=== PATIENT | female | born 1985 | race Caucasian/White ===

== ENCOUNTER 2016-08-06 12:07 | Emergency (ER) | payer OTHER, MEDICAID ==
[~2016-08-06] VITALS: Ht 151.1 cm; Wt 69.1 kg
[~2016-08-06 12:07] MED LIST: AMPI500C49 PO; PREN-234 PO
[2016-08-06 12:12] VITALS: BP 129/74
[2016-08-06] MEDS: LIDOCAINE 1% 500 MG/50 ML VIAL INJ ONE (13:03)
[2016-08-06 14:03] VITALS: BP 117/67
== END 2016-08-06 14:04 | disposition home or self-care (01) ==
LOC: MED 12:07
DX: G44.209 Tension-type headache, unspecified, not intractable (principal); J45.909 Unspecified asthma, uncomplicated
CPT/HCPCS: 20552; 70450; 99284; J2001

== ENCOUNTER 2016-08-07 18:42 | Emergency (ER) | payer OTHER, MEDICAID ==
[~2016-08-07] VITALS: Ht 152.4 cm; Wt 68.0 kg
[2016-08-07 18:44] VITALS: BP 129/56
--- NOTE | 2016-08-07 19:09 | NUR ---
Patient to bed 8 at this time.
--- NOTE | 2016-08-07 19:22 | NUR ---
31 Y/O F W/C/O HEADACHES AND DIZZINESS X 1 MYH ON AND OFF. SHE DENIES FAINTING, OR SOB. NO S/S OF DISTRESS NOTED. ER MD MADE AWARE.
--- NOTE | 2016-08-07 19:35 | NUR ---
Dr. Nieves evaluating patient at bedside.
[2016-08-07] MEDS ORDERED: diphenhydrAMINE 50 MG/ML VIAL IM ONE (19:45)
[2016-08-07] MEDS ORDERED: PROCHLORPERAZINE 10 MG/2 ML VIAL IM ONE (19:45)
[2016-08-07 20:16] VITALS: BP 123/69
--- NOTE | 2016-08-07 20:16 | NUR ---
Patient discharged with v/s stable. Written and verbal after care instructions given and explained. Patient alert, oriented and verbalized understanding of instructions. Ambulatory with steady gait. All questions addressed prior to discharge. ID band removed. Patient advised to follow up with PMD OR RETURN TO ER IF CONDITION WORSENS. Rx of BENADRYL, AND COMPAZINE given. Patient educated on indication of medication including possible reaction and side effects. Opportunity to ask questions provided and answered.
== END 2016-08-07 20:16 | disposition home or self-care (01) ==
LOC: MED 18:42
DX: G44.209 Tension-type headache, unspecified, not intractable (principal); J45.909 Unspecified asthma, uncomplicated
CPT/HCPCS: 82948; 96372; 99284; J0780; J1200

== ENCOUNTER 2016-10-13 17:54 | Emergency (ER) | payer OTHER, MEDICAID ==
[~2016-10-13] VITALS: Ht 152.4 cm; Wt 68.0 kg
[2016-10-13 18:25] VITALS: BP 116/75
--- NOTE | 2016-10-13 19:21 | NUR ---
Patient ambulated to bed 08.
--- NOTE | 2016-10-13 19:23 | NUR ---
31 Y/O F W/C/O LUMPS AROUND RECTUM WITH SOME DRAINAGE COMING OUT. PT STATES SHE BELIEVES THESE LUMPS ARE HEMORROIDS AND ARE PAINFULL. PT DENIES ANY FEVER BUT STATES HAS HAD CHILLS AND BODY ACHES. NO S/S OF DISTRESS NOTED, ER MADE AWARE.
--- NOTE | 2016-10-13 19:35 | NUR ---
ZAHRA DAVILA AT BEDSIDE EVALUATING PT.
[2016-10-13 20:05] VITALS: BP 120/71
--- NOTE | 2016-10-13 20:05 | NUR ---
Patient discharged with v/s stable. Written and verbal after care instructions given and explained. Patient alert, oriented and verbalized understanding of instructions. Ambulatory with steady gait. All questions addressed prior to discharge. ID band removed. Patient advised to follow up with PMD, OR RETURN BACK TO ER IF CONDITION WORSENS. Rx of ANUSOL AND COLACE given. Patient educated on indication of medication including possible reaction and side effects. Opportunity to ask questions provided and answered.
== END 2016-10-13 20:05 | disposition home or self-care (01) ==
LOC: MED 17:54
DX: K64.4 Residual hemorrhoidal skin tags (principal); J45.909 Unspecified asthma, uncomplicated
CPT/HCPCS: 99283

== ENCOUNTER 2016-11-24 13:29 | Emergency (ER) | payer OTHER, MEDICAID ==
[~2016-11-24] VITALS: Ht 152.4 cm; Wt 64.0 kg
[2016-11-24 13:33] VITALS: BP 145/69
--- NOTE | 2016-11-24 15:33 | NUR ---
PATIENT LEFT WITHOUT BEING SEEN BY DR. MARSHALL. NO FURTHER CARE PROVIDED FOR PATIENT.
== END 2016-11-24 15:33 | disposition left against medical advice (07) ==
LOC: MED 13:29
DX: R00.2 Palpitations (principal); Z53.21 Procedure and treatment not carried out due to patient leaving prior to being seen by health care provider

== ENCOUNTER 2018-01-20 21:34 | Emergency (ER) | payer OTHER, MEDICAID ==
[~2018-01-20] VITALS: Ht 152.4 cm; Wt 65.8 kg
[2018-01-20 21:35] VITALS: BP 112/59
--- NOTE | 2018-01-20 21:39 | NUR ---
PT TAKEN TO BED 2
--- NOTE | 2018-01-20 21:40 | NUR ---
32 Y/O F PRESENTS TO THE ED W/C/O HEADACHE THAT RADIATES TO UPPER SHOULDERS X 3 WEEKS. PT DENIES V/D; +NAUSEA. SKIN IS INTACT, PINK/WARM/DRY; AAOX4, PERRL, WITH EVEN AND STEADY GAIT; LUNGS CLEAR BL, BREATHING UNLABORED; HR EVEN AND REGULAR, BL PERIPHERAL PULSES PRESENT; BS ACTIVE X4, NO TENDERNESS TO PALPATION, NO HEPATOSPLENOMEGALLY PALPATED, RESONANT TO PERCUSSION; PT DENIES ANY FEVER, CP, SOB, OR COUGH AT THIS TIME; PT STATES 9/10 PAIN AT THIS TIME; VSS; PATIENT POSITIONED FOR COMFORT; HOB ELEVATED; BEDRAILS UP X2; BED DOWN.
--- NOTE | 2018-01-20 22:05 | NUR ---
Dr. Bravo evaluating patient at bedside.
[2018-01-20] MEDS ORDERED: DIAZEPAM 5 MG TAB PO ONE (22:15)
[2018-01-20] MEDS ORDERED: KETOROLAC 30 MG/ML VIAL IM ONE (22:15)
[2018-01-20] MEDS ORDERED: KETOROLAC 30 MG/ML VIAL IVP ONE (22:15)
--- NOTE | 2018-01-20 23:00 | NUR ---
PT RESTING COMFORTABLY IN BED
[2018-01-20 23:36] VITALS: BP 120/72
--- NOTE | 2018-01-20 23:37 | NUR ---
Patient discharged with v/s stable. Written and verbal after care instructions given and explained. Patient alert, oriented and verbalized understanding of instructions. Ambulatory with steady gait. All questions addressed prior to discharge. ID band removed. Patient advised to follow up with PMD. Rx of NAPROSYN, VALIUM given. Patient educated on indication of medication including possible reaction and side effects. Opportunity to ask questions provided and answered.
== END 2018-01-20 23:37 | disposition home or self-care (01) ==
LOC: MED 21:34
DX: R51 Headache (principal); M54.2 Cervicalgia; J45.909 Unspecified asthma, uncomplicated
CPT/HCPCS: 81025; 96374; 99283; J1885; J7030

== ENCOUNTER 2018-04-09 10:15 | Emergency (ER) | payer MEDICAID, OTHER ==
[~2018-04-09] VITALS: Ht 160 cm; Wt 66.8 kg
[2018-04-09 10:20] VITALS: BP 125/96
--- NOTE | 2018-04-09 10:30 | NUR ---
32 yo f bib self w/ c/o asthma exacerbation x 2 days w/ inspiratory and expiratory wheezing. pt also reports having a dry cough and fever. pt took 1 dose of albuterol today, with no relief. rr even and tachypneic. clear speech with full sentences. pt reports of 6/10 mid back pain. rt paged. er md desir made aware of pt status. will continue to monitor.
--- NOTE | 2018-04-09 10:34 | NUR ---
influenza swab collected and sent to lab
[2018-04-09] MEDS ORDERED: ALBUTEROL SULFATE/IPRATROPIU 3 ML SOL IH ONE (10:35)
--- NOTE | 2018-04-09 11:10 | NUR ---
resp status improved; decreased wheezing to bl lung sounds.
[2018-04-09 11:28] VITALS: BP 119/70
--- NOTE | 2018-04-09 11:28 | NUR ---
Patient discharged with v/s stable. Written and verbal after care instructions given and explained. Patient alert, oriented and verbalized understanding of instructions. Ambulatory with steady gait. All questions addressed prior to discharge. ID band removed. Patient advised to follow up with PMD. Rx of Tamiflu 75mg and Prednisone 50mg given. Patient educated on indication of medication including possible reaction and side effects. Opportunity to ask questions provided and answered.
== END 2018-04-09 11:28 | disposition home or self-care (01) ==
LOC: EDBD → MED 10:15
DX: J10.1 Influenza due to other identified influenza virus with other respiratory manifestations (principal); J45.909 Unspecified asthma, uncomplicated
CPT/HCPCS: 36415; 87804; 94640; 99283; J7620

== ENCOUNTER 2018-09-27 18:43 | Emergency (ER) | payer BC, MEDICAID ==
[~2018-09-27] VITALS: Ht 154.9 cm; Wt 65.3 kg
[2018-09-27 19:10] VITALS: BP 119/76
[2018-09-27] MEDS ORDERED: diphenhydrAMINE 50 MG/ML VIAL IVP ONE (19:35)
[2018-09-27] MEDS ORDERED: METOCLOPRAMIDE 10 MG/2 ML INJ VIAL IVP ONE (19:35)
[2018-09-27] MEDS ORDERED: NACL 0.9% 1,000 ML IV ONE (19:35)
[2018-09-27 20:05] LABS: BASOPHILS # (AUTO) 0.1 K/uL (0.00-0.22); BASOPHILS % (AUTO) 0.9 % (0.0-2.0); EOSINOPHILS # (AUTO) 0.1 K/uL (0-0.4); EOSINOPHILS % (AUTO) 1.5 % (0.0-4.0); HEMATOCRIT 37.1 % (36-48); HEMOGLOBIN 12.5 g/dL (12.0-16.0); LYMPHOCYTES # (AUTO) 2.2 K/uL (2.5-16.5); LYMPHOCYTES % (AUTO) 28.5 % (20.5-51.1); MEAN CORPUSCULAR HEMOGLOBIN 32 pg (27-31); MEAN CORPUSCULAR HGB CONC 34 g/dL (33-37); MEAN CORPUSCULAR VOLUME 93.9 fL (80-94); MONOCYTES # (AUTO) 0.5 K/uL (0.8-1.0); MONOCYTES % (AUTO) 6.7 % (1.7-9.3); NEUTROPHILS # (AUTO) 4.8 K/uL (1.8-7.7); NEUTROPHILS % (AUTO) 62.4 % (42.2-75.2); PLATELET COUNT (AUTO) 270 K/uL (140-450); RED BLOOD CELL COUNT(AUTO) 3.95 MIL/uL (4.20-5.40); RED CELL DISTRIBUTION WIDTH 12.8 % (11.6-13.7); WHITE BLOOD COUNT (AUTO) 7.7 K/uL (4.8-10.8)
[2018-09-27 20:20] LABS: ANION GAP 11.2 (8-16); CARBON DIOXIDE 26.3 mmol/L (21-32); CREATININE 0.7 mg/dL (0.6-1.3); POTASSIUM 3.5 mmol/L (3.5-5.1)
[2018-09-27 23:34] VITALS: BP 101/60
== END 2018-09-27 23:32 | disposition home or self-care (01) ==
LOC: MED 18:43
DX: R51 Headache (principal); J45.909 Unspecified asthma, uncomplicated
CPT/HCPCS: 36415; 70450; 80048; 81002; 81025; 85025; 96374; 96375; 99284; J1200; J2765; J7030

== ENCOUNTER 2019-02-21 22:49 | Emergency (ER) | payer BC, MEDICAID ==
[~2019-02-21] VITALS: Ht 152.4 cm; Wt 67.1 kg
[2019-02-21 22:54] VITALS: BP 130/83
--- NOTE | 2019-02-21 22:59 | NUR ---
PT AMBULATED TO BED #12
--- NOTE | 2019-02-21 23:00 | NUR ---
33 Y/O FEMALE BIB C/O OF ABDOMINAL PAIN WITH HEMATURIA AND DYSURIA X1 DAY. PAIN RANGES FROM A 5-6/10 PAIN. DENIES N/V/D. ABDOMEN IS SOFT AND ROUND; ACTIVE BOWEL SOUNDS. NO TENDERNESS UPON PALPATION. PATIENT STATES THAT SHE HAS BLOOD IN HER URINE. PMH:ARTHRITIS; GASTRITIS; DM; HTN SURGICAL HX: NKA RX:NKDA Addendum: 02/22/19 at 0409 by ZULEMA ERMTrupti MADE AWARE. SIDE RAILSX1.
--- NOTE | 2019-02-21 23:12 | NUR ---
Dr. Nieves examining patient.
[2019-02-21] MEDS ORDERED: PHENAZOPYRIDINE 100 MG TAB PO ONE (23:20)
[2019-02-21] MEDS ORDERED: KETOROLAC 60 MG/2 ML VIAL IM ONE (23:20)
[2019-02-21 23:23] LABS: BILIRUBIN,URINE NEGATIVE (NEGATIVE); BLOOD, URINE 3+ (NEGATIVE); LEUKOCYTE ESTERASE ,URINE 2+ (NEGATIVE); NITRITE, URINE NEGATIVE (NEGATIVE); UGLUCOSE NEGATIVE (NEGATIVE)
[2019-02-21] MEDS ORDERED: PHENAZOPYRIDINE 100 MG TAB ONE (23:36)
[2019-02-21 23:37] LABS: APPEARANCE,URINE SLIGHTLY CLOUDY (CLEAR); COLOR,URINE RED (YELLOW)
--- NOTE | 2019-02-21 23:37 | NUR ---
ACCIDENTALLY ONLY PULLED 100MG OF PYRDIUM. WENT TO OMNICELL AND OVERRIDE TO GRAB THE OTHER 100MG.
[2019-02-21 23:38] LABS: WBC,URINE 16-25 (MOD) /HPF (0-5)
[2019-02-21] MEDS ORDERED: SULFAMETH/TRIMETH DS 800/160MG 1 TAB PO ONE (23:50)
[2019-02-22] VITALS: BP 130/83
--- NOTE | 2019-02-22 | NUR ---
Patient discharged with v/s stable. Written and verbal after care instructions given and explained. Patient alert, oriented and verbalized understanding of instructions. Ambulatory with steady gait. All questions addressed prior to discharge. ID band removed. Patient advised to follow up with PMD. Rx of PYRIDIUM; BACTRIM; MOTRIN given. Patient educated on indication of medication including possible reaction and side effects. Opportunity to ask questions provided and answered.
--- NOTE | 2019-02-24 13:26 | NUR ---
URINE CULTURE RESULTS RECEIVED, PT TREATED APPROPRIATELY PER THE C&S. Addendum: 02/24/19 at 1328 by [facility] CULTURE RESULTS SHOWED TO DR. SHIELDS, NO NEW TREATMENT NEEDED. PT RECEIVING APPROPRIATE TREATMENT.
== END 2019-02-22 | disposition home or self-care (01) ==
LOC: MED 22:49
DX: N39.0 Urinary tract infection, site not specified (principal); J45.909 Unspecified asthma, uncomplicated; I10 Essential (primary) hypertension
CPT/HCPCS: 81001; 87086; 87186; 96372; 99283; J1885

== ENCOUNTER 2020-07-02 17:53 | Inpatient (IN) | payer BC, MEDICAID, SELFPAY ==
[~2020-07-02] VITALS: Ht 152.4 cm; Wt 67.1 kg
[2020-07-02 17:58] VITALS: BP 119/78
--- NOTE | 2020-07-02 18:00 | NUR ---
Patient ambulated to bed 01 with steady/even gait.
--- NOTE | 2020-07-02 18:40 | NUR ---
35 y/o F coming in from home with c/c LLQ abdominal pain x 5 weeks. Patient presents A&Ox4, ambulatory, Tajik speaking and states abdominal pain x 5 weeks that worsen. Patient reports bloating, headache, nausea without vomiting/diarrhea. Patient also reports suprapubic pain; patient noted with red stretch begum to lower pelvic/suprapubic region. Patient states this has been going on for 5 weeks as well. Patient reports Tylenol prior to arrival without relief. Patient denies any urinary symptoms, chest pain, back pain, dizziness, cough, fever/chills. Patient states last BM this morning; normal/semi-formed. Pt placed into gown, urine sample obtained. marketing director in place; patient tachycardic at HR 115. Bowel sounds normoactive x 4 quadrants. Bed locked in lowest position, side rails x 1, call light in reach. PMH/Sx/Meds: Denies NKA
--- NOTE | 2020-07-02 19:04 | NUR ---
Blood sample collected and remains at ER bedside.
[2020-07-02] MEDS ORDERED: NACL 0.9% 1,000 ML IV SCH (19:15)
--- NOTE | 2020-07-02 19:15 | NUR ---
Blood and urine sample collected, walked to lab and handed to CPT. Thea
--- NOTE | 2020-07-02 19:19 | NUR ---
Report and transfer of care given to YARELY Singleton.
--- NOTE | 2020-07-02 19:20 | NUR ---
RECEIVED REPORT FROM DAY SHIFT NURSE JORGE L. PT IN BED RESTING WITH MONITORS IN PLACE. PT STILL COMPLAINING OF ABDOMINAL PAIN 10/10 AND MILD HEADACHE. PT TACHYCATDIC HR 112, OTHER VS STABLE. PT WITH NO REQUESTS MADE AT THIS TIME. SAFETY MEASURES IN PLACE. WILL CONTINUE TO MONITOR.
[2020-07-02 19:28] LABS: BASOPHILS % (AUTO) 0.3 % (0.0-2.0); EOSINOPHILS # (AUTO) 0.1 K/uL (0-0.4); EOSINOPHILS % (AUTO) 0.9 % (0.0-4.0); HEMATOCRIT 36.4 % (36-48); HEMOGLOBIN 12.2 g/dL (12.0-16.0); LYMPHOCYTES # (AUTO) 1.4 K/uL (2.5-16.5); LYMPHOCYTES % (AUTO) 9.4 % (20.5-51.1); MEAN CORPUSCULAR HEMOGLOBIN 32 pg (27-31); MEAN CORPUSCULAR HGB CONC 34 g/dL (33-37); MEAN CORPUSCULAR VOLUME 94.4 fL (80-94); MONOCYTES # (AUTO) 1.4 K/uL (0.8-1.0); MONOCYTES % (AUTO) 9.8 % (1.7-9.3); NEUTROPHILS # (AUTO) 11.5 K/uL (1.8-7.7); NEUTROPHILS % (AUTO) 79.6 % (42.2-75.2); PLATELET COUNT (AUTO) 486 K/uL (140-450); RED BLOOD CELL COUNT(AUTO) 3.85 MIL/uL (4.20-5.40); RED CELL DISTRIBUTION WIDTH 12.5 % (11.6-13.7); WHITE BLOOD COUNT (AUTO) 14.5 K/uL (4.8-10.8)
[2020-07-02 19:28] LABS: APPEARANCE,URINE CLEAR (CLEAR); BILIRUBIN,URINE NEGATIVE (NEGATIVE); BLOOD, URINE 1+ (NEGATIVE); COLOR,URINE YELLOW (YELLOW); LEUKOCYTE ESTERASE ,URINE NEGATIVE (NEGATIVE); NITRITE, URINE NEGATIVE (NEGATIVE); PH,URINE 6.5 (5.0-9.0); UGLUCOSE NEGATIVE (NEGATIVE)
[2020-07-02 19:47] LABS: RBC,URINE 11-20 (MOD) /HPF (0-5); WBC,URINE 0-5 /HPF (0-5)
[2020-07-02 20:28] LABS: ALBUMIN 3.7 g/dL (3.4-5.0); ANION GAP 14.3 (8-16); CARBON DIOXIDE 26.5 mmol/L (21-32); CREATININE 0.7 mg/dL (0.6-1.3); POTASSIUM 3.8 mmol/L (3.5-5.1); TOTAL BILIRUBIN 0.3 mg/dL (0.0-1.0)
--- NOTE | 2020-07-02 21:00 | NUR ---
PT OFF TO CT
--- NOTE | 2020-07-02 21:16 | NUR ---
PT BACK FROM CT
[2020-07-02] MEDS ORDERED: VANCOMYCIN 1,000 MG in DEXTROSE 5% 250 ML IV ONE (21:55)
[2020-07-02] MEDS ORDERED: MORPHINE SULFATE 4 MG/ML SYR IVP ONE (22:00)
[2020-07-02] MEDS ORDERED: cefTRIAXone 1,000 MG VIAL ONE (22:17)
[2020-07-02] MEDS ORDERED: VANCOMYCIN PER PHARMACY MC PRN (22:40)
[2020-07-02] MEDS ORDERED: DOCUSATE SODIUM 100 MG GELCAP PO PRN (22:40)
[2020-07-02] MEDS ORDERED: HYDROcodone/APAP 7.5/325 MG 1 TAB PO PRN (22:40)
[2020-07-02] MEDS ORDERED: POTASSIUM CHLORIDE 10 MEQ TABER PO PRN (22:40)
[2020-07-02] MEDS ORDERED: ONDANSETRON 4 MG/2 ML VIAL IM/IVP PRN (22:40)
[2020-07-02] MEDS ORDERED: ACETAMINOPHEN 325 MG TAB PO PRN (22:40)
[2020-07-02] MEDS ORDERED: VANCOMYCIN 1,000 MG VIAL ONE (23:17)
[2020-07-02 23:22] LABS: PROTHROMBIN TIME 9.2 secs (10.8-13.4)
[2020-07-02 23:23] LABS: FREE T4 (FREE THYROXINE) 1.05 ng/dL (0.76-1.46); MAGNESIUM 2.4 mg/dL (1.8-2.4); PHOSPHORUS 3.5 mg/dL (2.5-4.9); THYROID STIMULATING HORMONE 0.78 uIU/mL (0.34-3.74)
[2020-07-02] MEDS: NACL 0.9% 1,000 ML IV SCH (23:23)
--- NOTE | 2020-07-02 23:30 | NUR ---
PT ASLEEP. VISIBLE CHEST RISE AND FALL NOTED. PT NOT IN DISTRESS. SAFETY MEASURES IN PLACE. VSS, WILL CONTNUE TO MONITOR.
--- NOTE | 2020-07-03 01:15 | NUR ---
RECEIVED TELEPHONE REPORT FROM ER NURSE ZACHARY. PT AOX4, IV SITE RAC 20G PATENT INTACT INFUSING NS @60 ML/HR. SKIN INTACT, REDNESS TO S/P SURGICAL SITE. CC: LLQ ABD PAIN, NAUSEA. DX: ABDOMINAL WALL ABSCESS AND CELLULITIS S/P SURGERY. AMBULATORY, JOSE NEGATIVE. WILL GET THE ROOM READY
--- NOTE | 2020-07-03 01:22 | NUR ---
Patient will be admitted to care of DR BRADY. Admited to [facility]. Will go to room 105B. Belongings list completed. Report to LAURA PRITCHETT.
[2020-07-03 01:30] VITALS: BP 108/63
--- NOTE | 2020-07-03 01:30 | NUR ---
PATIENT ARRIVED TO UNIT. ON MEDSURG, PT AOX4 ON ROOM AIR. NO S/S RESPIRATORY DISTRESS. DENIES NAUSEA. HAS 5/10 ABD PAIN, SKIN WARM DRY INTACT, REDNESS TO LEFT SIDE SURGICAL SITE. LUNGS CLEAR, BOWEL SOUNDS ACTIVE. LBM: 07/02/20. IV SITE RAC 20G PATENT INTACT INFUSING NS @60ML/HR. ORIENTED TO ROOM AND HOSPITAL. NOTIFIED NPO STATUS TO PATIENT AND MANAGER PRINTING, SIGN POSTED AT DOOR. VS: TEMP 99.3 BP 108/63 HR 98 O2 SAT 98%. SAFETY MEASURES IN PLACE. CALL LIGHT WITHIN REACH. WILL CONTINUE TO MONITOR. MRSA SWAB OBTAINED
--- NOTE | 2020-07-03 01:45 | NUR ---
PATIENT STATES TOLERABLE PAIN AT THIS TIME. NO S/S ACUTE DISTRESS NOTED. BED IN LOW POSITION. CALL LIGHT WITHIN REACH. WILL CONTINUE TO MONITOR
--- NOTE | 2020-07-03 03:19 | NUR ---
PATIENT ASLEEP IN BED. RESPIRATIONS EVEN UNLABORED. NO DISTRESS NOTED. CALL LIGHT WITHIN REACH. WILL CONTINUE TO MONITOR
[2020-07-03 04:00] VITALS: BP 99/69
--- NOTE | 2020-07-03 05:11 | NUR ---
PATIENT ASLEEP IN BED. RESPIRATIONS EVEN UNLABORED. NO DISTRESS NOTED. CALL LIGHT WITHIN REACH. WILL CONTINUE TO MONITOR
[2020-07-03 06:39] LABS: CREATININE 0.6 mg/dL (0.6-1.3)
[2020-07-03 06:47] LABS: BASOPHILS # (AUTO) 0.1 K/uL (0.00-0.22); BASOPHILS % (AUTO) 0.4 % (0.0-2.0); EOSINOPHILS # (AUTO) 0.1 K/uL (0-0.4); EOSINOPHILS % (AUTO) 0.8 % (0.0-4.0); HEMATOCRIT 33.9 % (36-48); HEMOGLOBIN 11.5 g/dL (12.0-16.0); LYMPHOCYTES # (AUTO) 1.5 K/uL (2.5-16.5); LYMPHOCYTES % (AUTO) 10.3 % (20.5-51.1); MEAN CORPUSCULAR HEMOGLOBIN 32 pg (27-31); MEAN CORPUSCULAR HGB CONC 34 g/dL (33-37); MEAN CORPUSCULAR VOLUME 92.9 fL (80-94); MONOCYTES # (AUTO) 1.8 K/uL (0.8-1.0); MONOCYTES % (AUTO) 12.3 % (1.7-9.3); NEUTROPHILS # (AUTO) 11.4 K/uL (1.8-7.7); NEUTROPHILS % (AUTO) 76.2 % (42.2-75.2); PLATELET COUNT (AUTO) 412 K/uL (140-450); RED BLOOD CELL COUNT(AUTO) 3.65 MIL/uL (4.20-5.40); RED CELL DISTRIBUTION WIDTH 12.7 % (11.6-13.7); WHITE BLOOD COUNT (AUTO) 14.9 K/uL (4.8-10.8)
[2020-07-03] MEDS ORDERED: MORPHINE SULFATE 4 MG/ML SYR IVP PRN (07:00)
[2020-07-03] MEDS ORDERED: BUPIVACAINE-MPF/EPI 0.5% 30 ML VIAL INJ ONE (07:17)
[2020-07-03] MEDS ORDERED: LIDOCAINE 1% 500 MG/50 ML VIAL ONE (07:18)
[2020-07-03] MEDS ORDERED: HYDROGEN PEROXIDE 3% 240 ML BTL TP ONE (07:18)
--- NOTE | 2020-07-03 07:31 | NUR ---
ENDORSED PATIENT TO DAY RN FOR CONTINUITY OF CARE. PATIENT IS IN STABLE CONDITION
--- NOTE | 2020-07-03 07:33 | NUR ---
RECEIVED REPORT FROM NIGHT NURSE PT IS AAOX4 ON ROOM AIR , AMBULATORY, NPO AFTER MIDNIGHT , LAST BOWEL MOVEMENT 07/02/20 AND FOR I&D TODAY CONSENT NOT SIGNED BY PATIENT AND NOT SEEN BY THE DOCTOR.SKIN INTACT. SAFETY MEASURES IN PLACE AND CALL LIGHT WITHIN REACH. WILL CONTINUE TO MONITOR.
[2020-07-03 08:00] VITALS: BP 101/45
--- NOTE | 2020-07-03 08:00 | NUR ---
PATIENT OUT IN HER ROOM FOR SURGERY. PT IS STABLE.
--- NOTE | 2020-07-03 08:31 | NUR ---
PATIENT HAS BEEN SCREENED AND CATEGORIZED LOW NUTRITION RISK. PATIENT WILL BE SEEN WITHIN 7 DAYS OF ADMISSION. 07/09/[address]
[2020-07-03] MEDS ORDERED: VANCOMYCIN HCL 1,000 MG in DEXTROSE 5% 250 ML IV SCH (09:00)
[2020-07-03] MEDS ORDERED: MEPERIDINE 50 MG/ML SYR ONE (09:05)
[2020-07-03] MEDS ORDERED: KETOROLAC 30 MG/ML VIAL ONE (09:05)
[2020-07-03] MEDS ORDERED: DEXAMETHASONE 4 MG/ML VIAL ONE (09:05)
[2020-07-03] MEDS ORDERED: MIDAZOLAM 2 MG/2 ML VIAL ONE (09:05)
[2020-07-03] MEDS ORDERED: PROPOFOL 200 MG/20 ML VIAL IV ONE (09:05)
[2020-07-03] MEDS ORDERED: fentaNYL citrate 0.05 MG/ML VIAL ONE (09:05)
[2020-07-03] MEDS ORDERED: ONDANSETRON 4 MG/2 ML VIAL ONE (09:05)
[2020-07-03] MEDS ORDERED: SEVOFLURANE 250 ML BTL INH ONE (09:05)
--- NOTE | 2020-07-03 10:10 | NUR ---
placed incentive spirometer in patients room per order. pt currently out for procedure at this time. incentive spirometer left at bedside table for pt use.
--- NOTE | 2020-07-03 10:40 | NUR ---
PATIENT IS BACK IN HER ROOM S/P INCISION AND DRAINAGE OF ABSCESS OF ABDOMINAL WALL WITH CRISTELA DRAIN. VITAL SIGNS TAKEN BP 101/45 MD 80 RR 20 TEMP 97.6 OXYGEN SATURATION 99%. MONITORED AND CHECK VITAL SIGNS PT IS STABLE AND NO COMPLAINS OF PAIN.
--- NOTE | 2020-07-03 10:51 | NUR ---
DC PLANNIN YRS OLD FEMALE PATIENT WAS ADMITTED FROM HOME WITH A DX OF ABDOMINAL WALL ABSCESS AND CELLULITIS S/P SURGERY. PT HAS A HX OF TUMBECKY CRANE DONE 5 WEEKS AGO AT SURGERY OFFICE IN [place]. CT ABD SHOWED SUSPICIOUS FOR ABDOMINAL ABSCESS ,CXR SHOWED NO ACUTE PROCESS. RAPID COVID TEST NEGATIVE. STARTED IVF, IV ABX VANCOMYCIN AND ROCEPHIN. CONSULTED WITH ID, AND GENERAL SURGEON. DC PLAN TO GO HOME WITH HOME HEALTH FOR WOUND CARE. CM TO FOLLOW Addendum: 07/03/20 at 1109 by Analilia Bashir RN DC PLANNING: CALLED PT INSURANCE [facility] WITH [facility] LUCA ASH AT RISK, SPOKE WITH WILIAN FRANK STATED RECEIVED THE CLINICAL AND PROCESSING THE AUTH AND WILL CALL BACK. CM TO FOLLOW Addendum: 07/03/20 at 1341 by Analilia Bashir RN DC PLANNING: CALLED DR MUKESH FUNK'S OFFICE [phone] [place] OFF[facility] SPOKE WITH INDIO CLINICAL LAB SPECIALIST, NOTIFIED HER PT IS ADMITTED WITH US FOR ABDOMINAL WALL CELLULITIS. PER INDIO WILL NOTIFY DR FUNK AND ALSO I INFORMED HER OUR INFECTION CONTROL WILL CONTACT THEM. NOTIFY INFECTION CONTROL HECTOR FUNK'S OFFICE ADDRESS AND NUMBER. CM TO FOLLOW Addendum: 07/04/20 at 0930 by Molly Neal CM DC BRUSH POLISHER: FAXED ORDER FOR WOUND CARE AND HOME HEALTH TO [facility]. WILL FOLLOW UP WITH ZAC CEDENO Addendum: 07/04/20 at 1209 by Analilia Bashir RN DC PLANNING: CALLED DR SHINE TO DISCUSSED THE WOUND VAC ORDER TO PUT IT BY HOME HEALTH NURSE, LEWIS RYAN LEFT A MESSAGE. DC PLAN AWAITING FOR THE WOUND CULTURE RESULTS. CM TO FOLLOW Addendum: 07/04/20 at 1240 by Molly Neal CM DC BRUSH POLISHER: FAXED ORDER FOR WOUND VAC TO [facility] [phone]. THEY ARE STILL PROCESSING THE ORDER. Addendum: 07/04/20 at 1343 by Analilia Bashir RN DC PLANNING: RECEIVED A CALL FROM DR SHINE DISCUSSED THE WOUND VAC ORDER PER MD KENNEY TO PUT THE WOUND VAC WITH HOME HEALTH NURSE. PER WILIAN FRANK AT [facility] WILL ARRANGE HOME HEALTH AND WILL ORDER WOUND VAC. DC PLAN AWAITING FOR THE FINAL RESULT OF WOUND CULTURE RESULT. CM TO FOLLOW Addendum: 07/05/20 at 1035 by Molly Neal CM PEGGY MONTALVO: FOLLOWED UP WITH WILIAN AT [facility] HE ARRANGED HOME HEALTH WITH [facility]. Addendum: 07/05/20 at 1042 by Analilia Bashir RN DC PLANNING: RECEIVED A MESSAGE FROM [facility] WEN [phone] REGARDING THE WOUND VAC. CALLED [facility] A MESSAGE. ZAC TO FOLLOW Addendum: 07/05/20 at 1255 by Molly Neal CM PEGGY MONTALVO: CALLED [facility] TO FOLLOW UP NO ANSWER, LEFT A VOICEMAIL. [phone] THEY STATED THAT THEY ARE MISSING SOME THINGS AND CHARLENE WILL BE CALLING SHORTLY Addendum: 07/06/20 at 1541 by Molly Neal CM PEGGY MONTALVO: CONTACTED [facility] [phone] TO NOTIFY THEM THAT PATIENT WILL BE DISCHARGED TODAY. THEY WILL BE OUT THURSDAY TO SEE PATIENT.
--- NOTE | 2020-07-03 11:20 | NUR ---
MEDICATION DUE GIVEN VANCOMYCIN 1000 MG IV INFUSING WELL.
[2020-07-03] MEDS: VANCOMYCIN 1,000 MG in DEXTROSE 5% 250 ML IV SCH ×2 (11:25→23:12)
--- NOTE | 2020-07-03 11:59 | NUR ---
SOCIAL WORK NOTE: Patient's Orientation Unable To Assess Information Provided By DANNY ENCISO - Comments SW WAS UNABLE TO MEET PATIENT AT BEDSIDE. SW COMPLETED ASSESSMENT WITH Supervisor Pipe Manufacture, Realtionship and Phone Number DANNY ENCISO [phone] Healthcare Power of Cylinder Die Machine Helper No Does Patient Have a POLST No Identifying Problems No Social Work Triggers Is A Social Work Consult Needed No Mandate Report Filed No Explanation Of Identifying Problems PATIENT IS A 35-YEAR-OLD FEMALE ADMITTED FOR ABD WALL ABSCESS AND CELLULITIS. PATIENT HAS NO REPORTED PMHX. Admitted From Home Pre-Admission Level Of Functioning Status Independent/Ambulatory Prior Resources/Services Used In Last 12 Months No Prior Resources Used Prior DME No Prior DME Used Dialysis Comments N/A Living Situation Apartment Lives With Family Patient Had Caregiver No Home Support No Caregiver Issues Financial Issues No Known Financial Issue Referral To The Financial Counselor Needed No Factors/Needs No D/C Needs Identified Pt/Rep Participated In Discharge Plan Yes Patient/Family Agress With Discharge Plan Yes Discharge Plan Comments TENTATIVE DISCHARGE PLAN IS FOR PATIENT TO RETURN HOME. DC Plan Status Initiated
--- NOTE | 2020-07-03 15:00 | NUR ---
MADE ROUNDS PT IS RESTING DENIES PAIN AND NO DISTRESS NOTED.
[2020-07-03] MEDS: NACL 0.9% 1,000 ML IV SCH (15:20)
[2020-07-03 18:00] VITALS: BP 115/51
--- NOTE | 2020-07-03 18:44 | NUR ---
MADE ROUNDS CHECK PT DRESSING DRY AND INTACT AND NO OUTPUT FOR CRISTELA DRAIN.
--- NOTE | 2020-07-03 19:17 | NUR ---
ENDORSED TO NIGHT NURSE FOR CONTINUITY OF CARE. PT IS STABLE.
--- NOTE | 2020-07-03 19:18 | NUR ---
RECEIVED BEDSIDE REPORT FROM DAY YARELY GONZALEZ. PT AOX4 ON ROOM AIR. NO S/S RESPIRATORY DISTRESS. NO C/O PAIN AT THIS TIME. IV SITE RAC 20G PATENT INTACT, INFUSING NS @60ML/HR. S/P I&D DRESSING DRY INTACT. CRISTELA DRAIN TO LEFT SIDE NO DRAINAGE. SAFETY MEASURES IN PLACE. CALL LIGHT WITHIN REACH. WILL CONTINUE TO MONITOR
[2020-07-03 20:00] VITALS: BP 97/56
--- NOTE | 2020-07-03 21:29 | NUR ---
PATIENT AWAKE TALKING ON CELLPHONE. DENIES PAIN, DENIES DISCOMFORT. NO S/S ACUTE DISTRESS NOTED. BED IN LOW POSITION. CALL LIGHT WITHIN REACH. WILL CONTINUE TO MONITOR
--- NOTE | 2020-07-03 22:02 | NUR ---
ADMINISTERED SCHEDULED MEDICATION. EDUCATION PROVIDED. NO DISTRESS NOTED. CALL LIGHT WITHIN REACH. WILL CONTINUE TO MONITOR
--- NOTE | 2020-07-03 23:05 | NUR ---
IV SITE RAC 20G INFILTRATED, REMOVED CANNULA INTACT. INSERTED NEW IV TO R HAND 24G PATENT INTACT. TOLERATED WELL. NO DISTRESS NOTED. CALL LIGHT WITHIN REACH. WILL CONTINUE TO MONITOR
--- NOTE | 2020-07-03 23:15 | NUR ---
ADMINISTERED SCHEDULED MEDICATION. EDUCATION PROVIDED. NO DISTRESS NOTED. CALL LIGHT WITHIN REACH. WILL CONTINUE TO MONITOR
--- NOTE | 2020-07-04 00:34 | NUR ---
PATIENT ASLEEP IN BED. RESPIRATIONS EVEN UNLABORED. NO DISTRESS NOTED. CALL LIGHT WITHIN REACH. WILL CONTINUE TO MONITOR
[2020-07-04] MEDS: NACL 0.9% 1,000 ML IV SCH ×2 (01:31→21:39)
--- NOTE | 2020-07-04 01:36 | NUR ---
IVF HUNG ORDERED. PATIENT NO S/S OF DISTRESS NOTED. CALL LIGHT WITHIN REACH. WILL CONTINUE TO MONITOR
--- NOTE | 2020-07-04 03:02 | NUR ---
PATIENT ASLEEP IN BED. RESPIRATIONS EVEN UNLABORED. NO DISTRESS NOTED. CALL LIGHT WITHIN REACH. WILL CONTINUE TO MONITOR
[2020-07-04 04:00] VITALS: BP 91/55
--- NOTE | 2020-07-04 04:40 | NUR ---
CRISTELA DRAIN OUTPUT LESS THAN 2.5 ML SEROSANGUINEOUS. DRESSING DRY INTACT. DENIES DISCOMFORT, DENIES PAIN. CALL LIGHT WITHIN REACH. WILL CONTINUE TO MONITOR
[2020-07-04 05:39] LABS: BASOPHILS % (AUTO) 0.1 % (0.0-2.0); EOSINOPHILS % (AUTO) 0.2 % (0.0-4.0); HEMATOCRIT 30.7 % (36-48); HEMOGLOBIN 10.4 g/dL (12.0-16.0); LYMPHOCYTES # (AUTO) 1.4 K/uL (2.5-16.5); LYMPHOCYTES % (AUTO) 9.2 % (20.5-51.1); MEAN CORPUSCULAR HEMOGLOBIN 32 pg (27-31); MEAN CORPUSCULAR HGB CONC 34 g/dL (33-37); MEAN CORPUSCULAR VOLUME 94.2 fL (80-94); MONOCYTES # (AUTO) 1.2 K/uL (0.8-1.0); MONOCYTES % (AUTO) 8.1 % (1.7-9.3); NEUTROPHILS # (AUTO) 12.5 K/uL (1.8-7.7); NEUTROPHILS % (AUTO) 82.4 % (42.2-75.2); PLATELET COUNT (AUTO) 455 K/uL (140-450); RED BLOOD CELL COUNT(AUTO) 3.25 MIL/uL (4.20-5.40); RED CELL DISTRIBUTION WIDTH 12.6 % (11.6-13.7); WHITE BLOOD COUNT (AUTO) 15.1 K/uL (4.8-10.8)
[2020-07-04 06:07] LABS: ANION GAP 12.2 (8-16); CARBON DIOXIDE 23.8 mmol/L (21-32); CREATININE 0.5 mg/dL (0.6-1.3)
--- NOTE | 2020-07-04 07:25 | NUR ---
ENDORSED PATIENT TO DAY RN FOR CONTINUITY OF CARE. PATIENT IS IN STABLE CONDITION
[2020-07-04 08:00] VITALS: BP 103/62
[2020-07-04 08:08] LABS: T4 (THYROXINE) 8.1 ug/dL (4.5-12.0)
[2020-07-04] MEDS: GAUZE TP SCH (08:41)
--- NOTE | 2020-07-04 08:41 | NUR ---
CRISTELA DRAIN AT LEFT LOWER ABD REMOVED BY DR. SHINE AT 08:25. WOUND CARE PERFORMED INSTRUCTED BY DR. SHINE. CLEANSE WOUND AT MID ABD WITH NORMAL SALINE, PACKED WITH WET KERLIX ROLLS. COVERED WITH ABD PAD. CRISTELA DRAIN OPENING CLEANSE WITH NS. COVERED WITH GAUZE. SECURED WITH TAPE, PATIENT TOLERATED THE PROCEDURE WELL, DENIED PAIN. PER DR. SHINE, PATIENT NEED WOUND VAC TOMORROW AND PATIENT MAY DC HOME. WOUND CARE NURSE DOE INFORMED. WILL INFORM TRUCK TECHNICIAN LATER.
--- NOTE | 2020-07-04 09:00 | NUR ---
PER PRIMARY RN SURGEON REMOVED CRISTELA DRAIN AND REQUEST WOUND VAC. PT IS A POSTOP DAY #42 FOLLOWING ABDOMINOPLASTY IN [place]. AND POSTOPERATIVE DAY #1 FOLLOWING INCISION AND DRAINAGE OF THE ABSCESS OF THE ABDOMINAL WALL IN THE LEFT LOWER QUADRANT. ABOVE INFORMATION OBTAINED FROM PT. H&P. LLQ ABDOMINAL WALL SURGICAL WOUND [id number] WOUND BED 100% GRANULATING TISSUE, UNDERMINING TO 12 OCLOCK DIRECTION 3CM, SMALL AMOUNT SEROSANGUINEOUS DRAINAGE, NO ODOR, WOUND EDGE FLAT, MILLY -WOUND SKIN TOWARD 3 OCLOCK DIRECTION S/P CRISTELA DRAINS SURGICAL SITE 0.5X0.5X1CM, CLEAN MOIST NO ODOR. POC DISCUSSED WITH PRIMARY RN AND OPERATOR BEARER SYSTEMS. OPERATOR BEARER SYSTEMS TO ORDER HOME UNIT WOUND VAC TO DELIVER TO HOSPITAL. RECOMMENDATION -CLEANSE LLQ ABDOMINAL WOUND WITH NS, PAT DRY, APPLY MOIST NS. KERLIX ROLL AND COVER WITH DRY DRESSING AND SECURED WITH TAPE QD AND PRN IF SOILING. APPLY WOUND VAC DRESSING PER SURGEONS ORDER WHEN AVAILABLE. -CLEANSE WOUND TO S/P CRISTELA DRAINS REMOVAL WITH NS, PAT DRY AND COVER WITH DRY DRESSING QD NPWT TO LLQ ABDOMINAL WOUND, FOLLOW [facility] THERAPY CLINICAL GUIDELINES. SET THERAPY ON CONTINUOUS THERAPY AT 125 MMHG. CHANGE DRESSING Q 72 HOURS AND PRN. -HOME HEALTH TO FOLLOW WOUND VAC DRESSING CHANGE
--- NOTE | 2020-07-04 09:16 | NUR ---
RECORDING CLERK MADE AWARE THAT PATIENT NEEDS WOUND VAC. PER MARÍA, WILL WORK ON THE ARRANGEMENT HOME HEALTH PER MD ORDER.
--- NOTE | 2020-07-04 11:30 | NUR ---
REMOVED IV ON THE RIGHT HAND, COVERED WITH GAUZE, SECURED WITH TAPE. INSERT NEW IV ON THE RIGHT FOREARM 20G WITH FIRST ATTEMPT, GOOD BLOOD RETURN AND EASILY TO FLUSH WITH NORMAL SALINE. PATIENT TOLERATED WELL. NO ACUTE DISTRESS NOTED, PATIENT DENIES PAIN OR DISCOMFORT. CALL LIGHT WITHIN REACH. WILL CONTINUE TO MONITOR.
[2020-07-04] MEDS: VANCOMYCIN 1,000 MG in DEXTROSE 5% 250 ML IV SCH ×2 (11:32→22:15)
--- NOTE | 2020-07-04 15:14 | NUR ---
PATIENT ASLEEP IN RIGHT LATERAL POSITION, VISIBLE CHEST RISE AND FALLS. NO ACUTE DISTRESS NOTED. WILL CONTINUE TO MONITOR.
--- NOTE | 2020-07-04 15:22 | NUR ---
PATIENT RESTING IN BED IN SEMI ANDERSON'S POSITION, DENIES PAIN OR DISCOMFORT. WILL CONTINUE TO MONITOR.
[2020-07-04 16:00] VITALS: BP 102/60
--- NOTE | 2020-07-04 16:22 | NUR ---
RECEIVED A CALL OF ARIAN FROM [facility] [phone], PER ARIAN, SHE WILL CALL PAY STATION ATTENDANT MARÍA TOMORROW TO GET MORE INFO REGARDING WOUND VAC MD ORDER, FREQUENCY OF WOUND VAC DRESSING CHANGE AND HOME HEALTH AGENCY
--- NOTE | 2020-07-04 17:15 | NUR ---
PATIENT RESTING IN BED, INFORMED PATIENT TO USE INCENTIVE SPIROMETER 10 TIMES PER HOUR WHILE AWAKE IF TOLERATED. PATIENT ABLE TO PROPER USE IT AND HOLD BREATH, DENIES PAIN. SAFETY MEASURES IN PLACE, WILL CONTINUE TO MONITOR.
--- NOTE | 2020-07-04 19:10 | NUR ---
PLAN OF CARE DISCUSSED WITH ZAINAB CLARK LVN. WILL MONITOR PT.
--- NOTE | 2020-07-04 19:14 | NUR ---
ENDORSED PATIENT TO EYE SURGEON RN FOR CONTINUITY OF CARE. PATIENT IN STABLE CONDITION.
--- NOTE | 2020-07-04 19:15 | NUR ---
RECD. RESTING IN BED, AWAKE, A/OX4. RESPIRATION EVEN AND UNLABORED. IV OF NS AT 60 ML/HR INFUSING, RIGHT FOREARM G20.SURGICAL INCISION IN THE ABDOMEN COVERED WITH DRESSING DRY AND INTACT. AMBULATORY TO THE BATHROOM. MEDICATIONS AND CARE FOR THE NIGHT DISCUSSED WITH PATIENT. VERBALIZED UNDERSTANDING. DENIES PAIN 0/10.
[2020-07-04 20:00] VITALS: BP 95/54
--- NOTE | 2020-07-04 21:00 | NUR ---
INQUIRED IF SHE NEEDS PAIN MEDICATION. STATED "NO". REORIENTED HOW TO USE CALL LIGHT, INSTRUCTED TO CALL NURSE WHEN NEEDING HELP. VERBALIZED UNDERSTANDING.
[2020-07-05] VITALS: BP 93/52
--- NOTE | 2020-07-05 | NUR ---
STILL AWAKE, WATCHING TV.
[2020-07-05] MEDS: NACL 0.9% 1,000 ML IV SCH ×2 (00:40→17:37)
--- NOTE | 2020-07-05 02:00 | NUR ---
NO COMPLAINT OF ABDOMINAL PAIN 0/10.
[2020-07-05] MEDS: VANCOMYCIN 1,000 MG in DEXTROSE 5% 250 ML IV SCH ×3 (03:25→20:00)
--- NOTE | 2020-07-05 05:00 | NUR ---
WHEN INQUIRED IF SHE HAS PAIN STATED "POQUITO", 03/11. OFFERED NORCO BUT REFUSED.
[2020-07-05 06:13] LABS: ANION GAP 12.4 (8-16); BASOPHILS # (AUTO) 0.1 K/uL (0.00-0.22); BASOPHILS % (AUTO) 1.1 % (0.0-2.0); CARBON DIOXIDE 23.5 mmol/L (21-32); CREATININE 0.6 mg/dL (0.6-1.3); EOSINOPHILS # (AUTO) 0.2 K/uL (0-0.4); EOSINOPHILS % (AUTO) 3.6 % (0.0-4.0); HEMATOCRIT 30.6 % (36-48); HEMOGLOBIN 10.4 g/dL (12.0-16.0); LYMPHOCYTES # (AUTO) 2.6 K/uL (2.5-16.5); LYMPHOCYTES % (AUTO) 37.8 % (20.5-51.1); MEAN CORPUSCULAR HEMOGLOBIN 32 pg (27-31); MEAN CORPUSCULAR HGB CONC 34 g/dL (33-37); MEAN CORPUSCULAR VOLUME 93.6 fL (80-94); MONOCYTES # (AUTO) 0.6 K/uL (0.8-1.0); MONOCYTES % (AUTO) 9.5 % (1.7-9.3); NEUTROPHILS # (AUTO) 3.3 K/uL (1.8-7.7); PLATELET COUNT (AUTO) 452 K/uL (140-450); POTASSIUM 3.9 mmol/L (3.5-5.1); RED BLOOD CELL COUNT(AUTO) 3.26 MIL/uL (4.20-5.40); RED CELL DISTRIBUTION WIDTH 12.7 % (11.6-13.7); WHITE BLOOD COUNT (AUTO) 6.8 K/uL (4.8-10.8)
--- NOTE | 2020-07-05 07:20 | NUR ---
CONDITION REMAIN STABLE. ENDORSED TO AM SHIFT NURSE FOR CONTINUITY OF CARE.
--- NOTE | 2020-07-05 07:25 | NUR ---
RECEIVED PT FROM NIGHT, SHIFT NURSE, ZAINAB, PT IS AWAKE AND SEATED ON THE BED WITH SIDE RAILS UP AND CALL LIGHT WITHIN REACH, PT IS ON RA AND IV LINE NOTED ON THE RFA G. 20 WITH NS INFUSING AT 60ML/HR, INTACT, DRESSING INTACT AND CLEAN NOTED ON THE LEFT LOWER ABDOMINAL AREA, PT DENIES PAIN AND NO SIGN OF DISTRESS NOTED, WILL MONITOR PT.
[2020-07-05 08:00] VITALS: BP 105/64
--- NOTE | 2020-07-05 09:10 | NUR ---
PT IS EATING HER BREAKFAST NOW. DENIES PAIN
--- NOTE | 2020-07-05 11:05 | NUR ---
PT IS RESTING AND SEATED ON THE BED NOW, DENIES PAIN, DRESSING CLEAN AND INTACT.
--- NOTE | 2020-07-05 11:44 | NUR ---
PT WAS GIVEN THE SCHEDULED VANCOMYCIN NOW.
--- NOTE | 2020-07-05 13:15 | NUR ---
PT IS LYING ON THE BED, DRESSING CLEAN AND INTACT, WILL MONITOR PT.
[2020-07-05] MEDS: GAUZE TP SCH (13:25)
[2020-07-05 16:00] VITALS: BP 109/67
--- NOTE | 2020-07-05 17:37 | NUR ---
HANG ANOTHER IVF BAG, PT IS SEATED AND PLAYING WITH HER CP.
--- NOTE | 2020-07-05 19:25 | NUR ---
ENDORSED PT TO GEOTHERMAL OPERATIONS ENGINEER NURSE FOR CONTINUITY OF CARE.
[2020-07-05 20:00] VITALS: BP 110/69
--- NOTE | 2020-07-05 20:00 | NUR ---
PATIENT WAS RECEIVED IN HER BED AWAKE AND COHERENT, ARMENIAN SPEAKING ONLY. RN WAS HELPED BY PATIENT IN BED A TO TRANSLATE THE CONVERSATION
--- NOTE | 2020-07-05 20:20 | NUR ---
PATIENT CALLED THE LIGHT REPORTED THE PUMP WAS ALARMING, PATIENT ALSO COMPLAINED PIV WAS SWOLLEN AND PAINFUL, PIV WAS OBSERVED TO BE INFILTRATED, REMOVED, PRESSURED DRESSING WAS APPLIED, NEW IV ACCESS WAS OBTAINED IN HER RIGHT FA MEDIAL PART OF THE FA.
--- NOTE | 2020-07-05 20:35 | NUR ---
PATIENT WAS ASSESSED, VITAL SIGNS WERE TAKEN WNL.
--- NOTE | 2020-07-05 22:50 | NUR ---
PATIENT COMPLAINED AGAIN OF PAIN IN THE IV SITE TO HER RIGHT FA, IT WAS REMOVED, NEW IV ACCESS WAS OBTAINED HI PATIENT'S LEFT FA USING 18 GAUGE FLORES.
[2020-07-06] MEDS ORDERED: VANCOMYCIN 1GM/DEXT 5% PREMIX 200 ML IV SCH
[2020-07-06] MEDS: NACL 0.9% 1,000 ML IV SCH (00:28)
--- NOTE | 2020-07-06 00:45 | NUR ---
RN MADE HIS MIDNIGHT ROUND PATIENT WAS CALMLY ASLEEP NO S/S OF DISTRESS.
[2020-07-06 06:34] LABS: BASOPHILS % (AUTO) 0.6 % (0.0-2.0); EOSINOPHILS # (AUTO) 0.2 K/uL (0-0.4); EOSINOPHILS % (AUTO) 3.8 % (0.0-4.0); HEMATOCRIT 34.1 % (36-48); HEMOGLOBIN 11.5 g/dL (12.0-16.0); LYMPHOCYTES % (AUTO) 33.4 % (20.5-51.1); MEAN CORPUSCULAR HEMOGLOBIN 32 pg (27-31); MEAN CORPUSCULAR HGB CONC 34 g/dL (33-37); MEAN CORPUSCULAR VOLUME 93.8 fL (80-94); MONOCYTES # (AUTO) 0.6 K/uL (0.8-1.0); MONOCYTES % (AUTO) 9.4 % (1.7-9.3); NEUTROPHILS # (AUTO) 3.2 K/uL (1.8-7.7); NEUTROPHILS % (AUTO) 52.8 % (42.2-75.2); PLATELET COUNT (AUTO) 544 K/uL (140-450); RED BLOOD CELL COUNT(AUTO) 3.64 MIL/uL (4.20-5.40); RED CELL DISTRIBUTION WIDTH 12.5 % (11.6-13.7); WHITE BLOOD COUNT (AUTO) 6.1 K/uL (4.8-10.8)
[2020-07-06 07:00] LABS: ANION GAP 13.4 (8-16); CARBON DIOXIDE 24.3 mmol/L (21-32); CREATININE 0.6 mg/dL (0.6-1.3); POTASSIUM 3.7 mmol/L (3.5-5.1)
--- NOTE | 2020-07-06 07:53 | NUR ---
WOUND VAC WAS ENDORSED TO INCOMING RN TO BRING HOME WITH THE PATIENT.
--- NOTE | 2020-07-06 07:53 | NUR ---
REPORTS WERE GIVEN TO INCOMING RN, CARE OF PATIENT WAS ENDORSED.
[2020-07-06 08:00] VITALS: BP 121/73
--- NOTE | 2020-07-06 08:05 | NUR ---
PATIENT IS AOX4, RESPIRATIONS EVEN AND UNLABORED ON ROOM AIR. DENIES PAIN AT THIS TIME. LLQ ABDOMINAL WOUND COVERED WITH ABD PAD IS CLEAN DRY AND INTACT. WOUND VAC AT BEDSIDE. BM 5/6. AMBULATING INDEPENDENTLY IN ROOM. TOLERATING DIET WELL WITH NO NAUSEA/VOMITING. WILL CONTINUE TO MONITOR.
[2020-07-06] MEDS ORDERED: VANCOMYCIN 1,000 MG in DEXTROSE 5% 250 ML IV SCH (09:00)
--- NOTE | 2020-07-06 10:14 | NUR ---
LLQ ABDOMEN WOUND CHANGED. PACKED WITH NS GAUZE COVERED WITH ABD PAD. PATIENT TOLERATED WELL.
--- NOTE | 2020-07-06 11:49 | NUR ---
WOUND VAC SUPPLY DELIVERED WITH MEDELA VAC AND [employer]CI VAC DRESSING, TUBING CONNECTION NOT COMPELLABLE, , FISH CONSERVATIONIST, CN NOTIFIED.CALL TO [facility] PER FISH CONSERVATIONIST'S REQUEST [phone].
[2020-07-06] MEDS: GAUZE TP SCH (12:22)
[2020-07-06] MEDS ORDERED: DYN250 PO (12:50)
[2020-07-06 12:54] VITALS: BP 121/73
--- NOTE | 2020-07-06 15:00 | NUR ---
WOUND VACUUM APPLIED BY WOUND RN. TEACHING DONE WITH H[employer] SCHOOL MUSIC INSTRUCTOR AT BEDSIDE.
--- NOTE | 2020-07-06 15:05 | NUR ---
WOUND VAC APPLY TO LLQ ABD SURGICAL WOUND, FUNCTIONING, PT. TOLERATE PROCEDURES WELL, MEDELA NPWT MANUFACTURE GUIDELINE PROVIDED AND WOUND CARE EXPLAINS TO PT. WITH GERHARD PRITCHETT TRANSLATE TO CROATIAN, ALL QUESTIONS ANSWERED, PT. VERBALIZES UNDERSTANDING. EXPLAIN TO PT. TO BRING ALL WOUND VAC SUPPLIES HOME AND TO FOLLOW UP SURGEON APPOINTMENT IF WAS ARRANGED WITH DIRECTOR OPERATIONS. -LLQ ABDOMINAL WALL SURGICAL WOUND 2.2B5O7DE WOUND BED 100% GRANULATING TISSUE, UNDERMINING TO 12 OCLOCK DIRECTION 3CM, SMALL AMOUNT SEROSANGUINEOUS DRAINAGE, NO ODOR, WOUND EDGE FLAT, MILLY -WOUND SKIN INTACT. -S/P CRISTELA DRAINS SURGICAL SITE 0.2X0.2CM, WOUND SITE HEALING WELL, CLEAN MOIST NO ODOR.
--- NOTE | 2020-07-06 15:45 | NUR ---
PATIENT DISCHARGE INSTRUCTIONS REVIEWED. ELECTROTYPE FINISHER LYNDA #[id number]. DISCUSSED WOUND VACUUM USE, TROUBLESHOOTING, WHO TO CALL, NEW MEDICATIONS AND SIDE EFFECTS. ALL QUESTIONS ANSWERED. IV REMOVED WITH CATHETER TIP INTACT. WILL BE PICKED UP BY FAMILY MEMBER.
== END 2020-07-06 16:15 | disposition home or self-care (01) | DRG 856 ==
LOC: MED 17:53 → MMU 22:25 → MTU 23:51
PROVIDERS: ADMIT Internal Medicine; ATTEND Internal Medicine
PROC: 0W9F00Z Drainage of Abdominal Wall with Drainage Device, Open Approach (ICD-10-PCS; principal; 2020-07-03 08:30)
DX: T81.49XA Infection following a procedure, other surgical site, initial encounter (principal); A41.9 Sepsis, unspecified organism; L02.211 Cutaneous abscess of abdominal wall; L03.311 Cellulitis of abdominal wall; Y83.8 Other surgical procedures as the cause of abnormal reaction of the patient, or of later complication, without mention of misadventure at the time of the procedure; Z20.822 Contact with and (suspected) exposure to COVID-19; Y92.89 Other specified places as the place of occurrence of the external cause
CPT/HCPCS: 36415; 71045; 80048; 80053; 80202; 81001; 83036; 83605; 83690; 83735; 84100; 84436; 84439; 84443; 84479; 84703; 85025; 85610; 85730; 86886; 86900; 86901; 87070; 87075; 87081; 87186; 87205; 96365; 96367; 99285; J0696; J1100; J1885; J2001; J2175; J2250; J2270; J2405; J2704; J3010; J3370; J3490; J7060; J7120; Q9967

== ENCOUNTER 2023-07-08 21:03 | Emergency (ER) | payer BC, MEDICAID, OTHER ==
[~2023-07-08] VITALS: Ht 152.4 cm; Wt 75.3 kg
[~2023-07-08 21:03] MED LIST changes: -AMPI500C49 PO; +DYN250 PO; -PREN-234 PO
[2023-07-08 21:36] VITALS: RESP 18; TEMP 97.6; O2SAT 98
[2023-07-08 22:03] LABS: BASOPHILS # (AUTO) 0.1 K/uL (0.00-0.22); BASOPHILS % (AUTO) 0.9 % (0.0-2.0); EOSINOPHILS # (AUTO) 0.2 K/uL (0-0.4); EOSINOPHILS % (AUTO) 2.6 % (0.0-4.0); HEMATOCRIT 38.7 % (36-48); HEMOGLOBIN 13.3 g/dL (12.0-16.0); LYMPHOCYTES # (AUTO) 1.2 K/uL (2.5-16.5); LYMPHOCYTES % (AUTO) 15.2 % (20.5-51.1); MEAN CORPUSCULAR HEMOGLOBIN 32 pg (27-31); MEAN CORPUSCULAR HGB CONC 34 g/dL (33-37); MEAN CORPUSCULAR VOLUME 92.2 fL (80-94); MONOCYTES # (AUTO) 0.9 K/uL (0.8-1.0); MONOCYTES % (AUTO) 10.9 % (1.7-9.3); NEUTROPHILS # (AUTO) 5.6 K/uL (1.8-7.7); NEUTROPHILS % (AUTO) 70.4 % (42.2-75.2); PLATELET COUNT (AUTO) 313 K/uL (140-450); RED CELL DISTRIBUTION WIDTH 12.6 % (11.6-13.7)
[2023-07-08 22:25] LABS: ANION GAP 11.3 (8-16); CALCIUM 8.8 mg/dL (8.5-10.1); CARBON DIOXIDE 28.5 mmol/L (21-32); CREATININE 0.6 mg/dL (0.6-1.3); POTASSIUM 3.8 mmol/L (3.5-5.1)
[2023-07-08 22:28] LABS: ALBUMIN 4.1 g/dL (3.4-5.0); BILIRUBIN,DIRECT 0.1 mg/dL (0.0-0.3); TOTAL BILIRUBIN 0.5 mg/dL (0.0-1.0); TOTAL PROTEIN, SERUM 7.6 g/dL (6.4-8.2)
[2023-07-08] MEDS ORDERED: DICYCLOMINE HCL LIQUID 10 MG/5 ML UDC ONE (22:28)
[2023-07-08] MEDS ORDERED: ALUMINUM HYD/MAG/SIMETHICONE 30 ML UDC ONE (22:28)
[2023-07-08] MEDS: ONDANSETRON 4 MG ODT PO ONE (22:31)
[2023-07-08] MEDS: DICYCLOMINE HCL LIQUID 20 MG, ALUMINUM HYD/MAG/SIMETHICONE 30 ML, LIDOCAINE VISCOUS 2% ... PO ONE (22:31)
[2023-07-08] MEDS ORDERED: MAG-27 PO (23:05)
[2023-07-08] MEDS: KETOROLAC 30 MG/ML VIAL IM ONE (23:13)
[2023-07-09 00:40] VITALS: BP 124/58; PULSE 72; RESP 18; TEMP 97.6; O2SAT 98
== END 2023-07-09 00:40 | disposition home or self-care (01) ==
LOC: MED 21:03
DX: R10.13 Epigastric pain (principal); R10.12 Left upper quadrant pain; Z79.899 Other long term (current) drug therapy
CPT/HCPCS: 36415; 80048; 80076; 81025; 83690; 85025; 96372; 99284; J1885; Q0162; 99283